=== PATIENT | female | born 1930 | race Caucasian/White ===

== ENCOUNTER → 2016-08-17 | Outpatient (REF) | payer MEDICARE ==
[~2016-08-17] MED LIST: /PANT40TA OR; ALLE180T33 PO; ALLEGRA PO; ASPI81TA83 OR; ASTELIN PO; ATEN25TA OR; ATEN25TA PO; AVASTIN; CALCCHW12 OR; CEFT500T OR; COLA100C PO; Diflucan; ELIQ5TAB PO; GLUC500T3 OR; GLUC500T53 PO; HYDR25TA6 OR; IBUP-1114 PO; LASI40TA OR; LIPI10TA OR; MEGA40SU PO; MELA1CAP2 PO; MULTIVIT PO; NORV5TAB OR; OCUVTA PO; OMEG12002 PO; OMEGA 3 PO; PERSERVISION PO; PRESCAP PO; PRESCAP4 PO; PROT1TAB2 PO; SENO8.6T10 PO; TYLE325T5 PO; VANIQA AD; VITA-193 PO; VITA500T3 PO; VITMTA PO; [UNRECOGNIZED DRUG - OTHER]
[2016-08-17 16:31] LABS: ALBUMIN 3.6 GM/DL (3.2-5.2); ALBUMIN/GLOBULIN RATIO 1.13 (1.00-1.93); BILIRUBIN,TOTAL 0.3 MG/DL (0.2-1.0); CALCIUM LEVEL 9.1 MG/DL (8.8-10.2); CREATININE FOR GFR 1.1 MG/DL (0.55-1.02); GLOMERULAR FILTRATION RATE 50.1 (>32); TOTAL PROTEIN 6.8 GM/DL (6.4-8.2)
== END ==
LOC: M SFHCPLAZ 14:14
PROVIDERS: ATTEND Internal Medicine
DX: I10 Essential (primary) hypertension (principal); E78.00 Pure hypercholesterolemia, unspecified; R94.6 Abnormal results of thyroid function studies

== ENCOUNTER → 2017-02-04 | Outpatient (REF) | payer MEDICARE ==
[~2017-02-04] MED LIST changes: -COLA100C PO; +COLA100C5 PO
[2017-02-04 13:05] LABS: MEAN CORPUSCULAR HEMOGLOBIN 30.1 pg (27.0-33.0); MEAN CORPUSCULAR HGB CONC 32.6 g/dl (32.0-36.5); MEAN CORPUSCULAR VOLUME 92.4 fl (80.0-96.0); RED CELL DISTRIBUTION WIDTH 13.6 % (11.5-14.5); WHITE BLOOD COUNT 7.2 K/mm3 (4.0-10.0)
[2017-02-04 13:21] LABS: ALBUMIN 3.8 GM/DL (3.2-5.2); ALBUMIN/GLOBULIN RATIO 1.12 (1.00-1.93); BILIRUBIN,TOTAL 0.6 MG/DL (0.2-1.0); CALCIUM LEVEL 9.5 MG/DL (8.8-10.2); CREATININE FOR GFR 1.2 MG/DL (0.55-1.02); GLOMERULAR FILTRATION RATE 45.2 (>32); POTASSIUM SERUM 4.2 MEQ/L (3.5-5.1); TOTAL PROTEIN 7.2 GM/DL (6.4-8.2)
== END ==
LOC: M SFHCPLAZ 10:34
PROVIDERS: ATTEND Internal Medicine
DX: D50.0 Iron deficiency anemia secondary to blood loss (chronic) (principal); I10 Essential (primary) hypertension

== ENCOUNTER → 2018-01-04 | Outpatient (REF) | payer MEDICARE ==
[2018-01-04 20:07] LABS: APPEARANCE, URINE CLEAR (CLEAR); BACTERIA, URINE AUTO NEGATIVE (NEGATIVE); BILIRUBIN, URINE AUTO NEGATIVE (NEGATIVE); BLOOD, URINE BLOOD NEGATIVE (NEGATIVE); COLOR, URINE STRAW (YELLOW); GLUCOSE, URINE (UA) AUTO NEGATIVE (NEGATIVE); KETONE, URINE AUTO NEGATIVE (NEGATIVE); LEUKOCYTE ESTERASE, URINE AUTO NEGATIVE (NEGATIVE); NITRITE, URINE AUTO NEGATIVE (NEGATIVE); PROTEIN, URINE AUTO NEGATIVE (NEGATIVE); RBC, URINE AUTO 0 /HPF (0-3); SPECIFIC GRAVITY URINE AUTO 1.004 (1.002-1.035); SQUAMOUS EPITHELIAL CELL UR AU 0 /HPF (0-6); UROBILINOGEN, URINE AUTO 0.2 mg/dL (0.0-2.0); WBC, URINE AUTO 0 /HPF (0-3)
== END ==
LOC: M SFHCPLAZ 07:08
DX: R44.3 Hallucinations, unspecified (principal); Z79.899 Other long term (current) drug therapy
CPT/HCPCS: 81001

== ENCOUNTER → 2018-01-05 | Outpatient (REF) | payer MEDICARE ==
[2018-01-05 12:22] LABS: HEMOGLOBIN 13.1 g/dl (12.0-15.5); MEAN CORPUSCULAR HEMOGLOBIN 29.8 pg (27.0-33.0); MEAN CORPUSCULAR VOLUME 93.2 fl (80.0-96.0); PLATELET COUNT, AUTOMATED 237 10^3/uL (150-450); RED CELL DISTRIBUTION WIDTH 12.8 % (11.5-14.5); WHITE BLOOD COUNT 5.8 10^3/uL (4.0-10.0)
[2018-01-05 13:29] LABS: VITAMIN B12 LEVEL > 2000 PG/ML
[2018-01-05 13:31] LABS: FOLATE > 24.0 NG/ML
[2018-01-05 14:38] LABS: ALBUMIN 3.6 GM/DL (3.2-5.2); ALBUMIN/GLOBULIN RATIO 1.06 (1.00-1.93); ALKALINE PHOSPHATASE 97 U/L (45-117); ALT/SGPT 20 U/L (12-78); ANION GAP 5 MEQ/L (8-16); AST/SGOT 13 U/L (7-37); BILIRUBIN,TOTAL 0.3 MG/DL (0.2-1.0); BLOOD UREA NITROGEN 23 MG/DL (7-18); CALCIUM LEVEL 9.5 MG/DL (8.8-10.2); CARBON DIOXIDE LEVEL 31 MEQ/L (21-32); CHLORIDE LEVEL 106 MEQ/L (98-107); CHOLESTEROL LEVEL 194 MG/DL (<200); CHOLESTEROL RISK RATIO 2.939 (<5); CREATININE FOR GFR 0.99 MG/DL (0.55-1.30); GLOMERULAR FILTRATION RATE 56.4 (>32); GLUCOSE, FASTING 78 MG/DL (70-100); HDL CHOLESTEROL 66 MG/DL (>40); LDL CHOLESTEROL 98.8 MG/DL (<100); MAGNESIUM LEVEL 2.2 MG/DL (1.8-2.4); NON-HDL-C 128 MG/DL; POTASSIUM SERUM 4.5 MEQ/L (3.5-5.1); SODIUM LEVEL 142 MEQ/L (136-145); TRIGLYCERIDES LEVEL 146 MG/DL (<150)
== END ==
LOC: M SFHCADAM 09:35
DX: D50.0 Iron deficiency anemia secondary to blood loss (chronic) (principal); I10 Essential (primary) hypertension; E78.00 Pure hypercholesterolemia, unspecified; R94.6 Abnormal results of thyroid function studies; F03.90 Unspecified dementia, unspecified severity, without behavioral disturbance, psychotic disturbance, mood disturbance, and anxiety
CPT/HCPCS: 82746

== ENCOUNTER 2018-07-12 08:02 | Inpatient (IN) | payer MEDICARE ==
[~2018-07-12] VITALS: Ht 160 cm; Wt 60.7 kg
[2018-07-12] MEDS ORDERED: RISP0.2516 PO ×2 (08:15→09:38)
[2018-07-12] MEDS ORDERED: RISP0.5T21 PO (08:15)
[2018-07-12] MEDS ORDERED: ZYRTTAB8 PO (08:15)
[2018-07-12 08:37] LABS: BASO # 0.1 10^3/uL (0.0-0.2); BASO % 0.6 % (0.0-1.0); EOS # 0.3 10^3/uL (0.0-0.50); EOS % 3.2 % (0.0-3.0); HEMATOCRIT 34.5 % (36.0-47.0); LYMPH # 1.4 10^3/uL (1.5-4.5); LYMPH % 17.3 % (24.0-44.0); MEAN CORPUSCULAR HEMOGLOBIN 28.4 pg (27.0-33.0); MEAN CORPUSCULAR HGB CONC 31.9 g/dl (32.0-36.5); MEAN CORPUSCULAR VOLUME 89.1 fl (80.0-96.0); MONO # 0.8 10^3/uL (0.0-0.8); MONO % 9.7 % (0.0-5.0); NEUTROPHILS # 5.7 10^3/uL (1.8-7.7); NEUTROPHILS % 68.6 % (36.0-66.0); PLATELET COUNT, AUTOMATED 281 10^3/uL (150-450); RED BLOOD COUNT 3.87 10^6/uL (4.00-5.40); WHITE BLOOD COUNT 8.3 10^3/uL (4.0-10.0)
--- NOTE | 2018-07-12 08:59 | REP ---
CT Head without contrast HISTORY: Altered mental status COMPARISON: 07/05/2015 An area of decreased attenuation is present in the right basal ganglia. This represents an old lacunar infarction. Areas of decreased attenuation are present in the periventricular and subcortical white matter. This represents small-vessel ischemic disease. There is no intraparenchymal hemorrhage, acute infarct, mass or midline shift. The ventricular system and cortical sulci as well as subarachnoid space in the posterior fossa are dilated consistent with moderate volume loss. There is no extra cerebral collection. There is no fracture. The visualized sinuses are clear. IMPRESSION: 1. Old right basal ganglia lacunar infarction. 2. Small vessel ischemic disease. 3. Moderate volume loss. Electronically Signed by Santiago Cain MD 07/12/2018 08:51 A
--- NOTE | 2018-07-12 09:04 | REP ---
CT cervical spine without contrast HISTORY: Fall COMPARISON: None There is no acute fracture. Disc bulges are present at the C2-3 and C3-4 levels. Disc bulges with associated osteophyte formation present at the C4-5 through C7-T1 levels. There is minimal narrowing of the spinal canal. Uncinate process and/or facet hypertrophy are present at the C2-3 through C7-T1 levels. These findings produce minimal to severe narrowing of the neural foramina. The C3-4 through C7-T1 intervertebral discs are decreased in height consistent with disc degeneration. There are 3 mm of anterior subluxation of C3-4. IMPRESSION: 1. There is no acute fracture. 2. There is cervical spondylosis at the C2-3 through C7-T1 levels. Electronically Signed by Santiago Cain MD 07/12/2018 08:55 A
[2018-07-12 09:15] LABS: ALT/SGPT 17 U/L (12-78); BILIRUBIN,DIRECT < 0.1 MG/DL (0.0-0.2); BILIRUBIN,TOTAL 0.2 MG/DL (0.2-1.0); BLOOD UREA NITROGEN 31 MG/DL (7-18); CALCIUM LEVEL 8.8 MG/DL (8.8-10.2); CARBON DIOXIDE LEVEL 25 MEQ/L (21-32); CHLORIDE LEVEL 106 MEQ/L (98-107); CPK CREATINE PHOSPHOKINASE 119 U/L (26-192); CREATININE FOR GFR 1.15 MG/DL (0.55-1.30); GLOMERULAR FILTRATION RATE 47.4 (>32); GLUCOSE, FASTING 99 MG/DL (70-100); MB/CK RELATIVE INDEX 2.35 (< OR =4); POTASSIUM SERUM 4.7 MEQ/L (3.5-5.1); SODIUM LEVEL 138 MEQ/L (136-145); TOTAL PROTEIN 6.4 GM/DL (6.4-8.2); TROPONIN I < 0.02 NG/ML (< 0.10)
--- NOTE | 2018-07-12 09:26 | REP ---
Pelvis: Single view. History: Injury in a fall. Findings: The bony pelvic ring is intact. There is diffuse osteopenia. No pelvic or sacral fracture is seen. Degenerative disc and facet changes are noted in the lower lumbar spine and there is evidence of a levoconvex scoliosis. No hip fracture is seen. Vascular calcifications noted. Bowel gas pattern is unremarkable. Impression: No traumatic abnormality seen. Electronically Signed by Yobany Hurst MD 07/12/2018 09:17 A
--- NOTE | 2018-07-12 09:29 | REP ---
Portable chest x-ray: Single view. History: Altered mental status. Comparison study: August 17, 2015. Findings: EKG monitoring electrodes overlie the chest. Surgical sutures are noted in the left upper quadrant of the abdomen. There is linear pleuroparenchymal fibrosis in the left base. No infiltrate is seen. Heart size is borderline. The thoracic aorta is tortuous. Impression: Linear pleuroparenchymal fibrosis left base. Otherwise no acute disease. Electronically Signed by Yobany Hurst MD 07/12/2018 10:45 A
[2018-07-12] MEDS ORDERED: NS 1,000 ML IV ONE (09:30)
[2018-07-12] MEDS ORDERED: ALL10TAB28 PO (09:38)
[2018-07-12] MEDS ORDERED: MELA1TAB15 PO (09:38)
[2018-07-12] MEDS ORDERED: ATEN50TA2 PO (09:39)
[2018-07-12] MEDS ORDERED: NORCO, ANEXSIA 5/325MG TABLET (HYDROcodone/ACETAMINOPHEN) PO PRN (10:45)
[2018-07-12] MEDS ORDERED: risperiDONE 0.25 MG TAB PO SCH (12:00)
[2018-07-12] MEDS: SENOKOT S TAB PO SCH ×3 (13:00→22:06)
[2018-07-12 14:33] LABS: TOTAL 25(OH) VITAMIN D 30.3 NG/ML (30.0-100.0)
[2018-07-12 15:08] LABS: VITAMIN B12 LEVEL 939 PG/ML (247-911)
--- NOTE | 2018-07-12 15:29 | HPEPDOC ---
General Date of Admission Jul 12, 2018 at 10:45 Chief Complaint The patient is a 87-year-old female Who was brought into the emergency room by her daughter because of worsening confusion. History of Present Illness Patient is an 87-year-old female with a PMHx of Dementia with Hallucinations, HTN, CAD without stent (Hx of [place]), Asthma / Bronchitis, Chronic allergies, RLS, Bilateral macular degeneration, GERD, who presented to the ER, brought in by her daughter because of worsening confusion. Patient is a poor historian and details are provided by the daughters. Noted that over the course of 3 weeks. Patient has been having worsening mentation. Yesterday patient had had a fall or she was too weak to move. . They noted that she fell backward landing on her back. . He denied any loss of consciousness, but they did report head trauma. As per the daughters patient has not experienced any cough, fevers, chills, nausea or vomiting. They do note that the patient is incontinent of urine and stool. They may have noted some abnormal odor of urine. Patient has noted some constipation, however has a bowel movement yesterday. Present noted that the patient has been experiencing dementia with hallucina tions over the last 3 years. They note that they have been on Risperdal for these hallucinations. There has been improvement initially, however, there was worsening hallucinations and dose of Risperdal has been increased one week ago by her primary care provider. Family notes that the patient has had a good appetite and dont note any significant change in her weight. Home Medications Scheduled Apixaban Base (Eliquis) 5 Mg Tab, 5 MG PO BID, (Reported) Atenolol (Atenolol) 50 Mg Tab, 25 MG PO QHS, (Reported) Cetirizine HCl (All Day Allergy) 10 Mg Tab, 10 MG PO DAILY, (Reported) Docusate Sod/Senna (Senokot S 8.6-50 mg) 1 Tab Tab, 1 TAB PO QID, (Reported) Melatonin (Melatonin) 10 Mg Tab, 10 MG PO QHS, (Reported) Multivitamin Areds (Preservision Areds) 1 Cap Cap, 1 CAP PO BID, (Reported) Pantoprazole Sodium Sesquihydr (Protonix) 40 Mg Tab, 40 MG PO DAILY, (Reported) Risperidone (Risperdal) 0.5 Mg Tab, 0.5 MG PO BID, (Reported) Risperidone (Risperdal) 0.25 Mg Tab, 0.25 MG PO DAILY, (Reported) TAKES @ NOON Allergies Coded Allergies: Morphine (Verified Allergy, Intermediate, RASH, 09/26/12) Penicillins (Verified Allergy, Intermediate, RASH, 09/26/12) Penicillins Cross Reactors (Verified Allergy, Intermediate, RASH, 09/26/12) Sulfa Drugs (Verified Allergy, Intermediate, RASH, 09/26/12) Sulfa Drugs Cross Reactors (Verified Allergy, Intermediate, RASH, 09/26/12) Aloe (Unverified Allergy, Mild, Rash, 07/06/15) Cephalosporins (Verified Allergy, Unknown, 07/05/15) Reaction: Rash Enalapril (Verified Allergy, Unknown, 09/26/12) Trandolapril (Verified Allergy, Unknown, 09/26/12) Codeine (Verified Adverse Reaction, Mild, ANXIETY, 09/26/12) Diphenhydramine (Verified Adverse Reaction, Unknown, agitation, 07/12/18) Past Medical History Medical History Dementia with Hallucinations, HTN, CAD without stent (Hx of [place]), Asthma / Bronchitis, Chronic allergies, RLS, Bilateral macular degeneration, GERD Surgical History Right breast biopsy Lumbar spine surgery Bilateral cataract excision Reparative Enterocele Abdominal hysterectomy Bilateral salpingo-oophorectomy for cervical cancer Vitrectomy surgery of the right eye Ovarian cystectomy with appendectomy Bladder suspension Tonsillectomy Colonoscopy done approximately 7 years Family History - Noncontributory given advanced age Social History - Denies the use of alcohol, tobacco or illicit drugs - Denies recent travel or sick contacts - Lives with daughter - Occupation; 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[place] [employer] Other systems Unable to be obtained, as patient is a poor historian Vital Signs - Vitals: BP 122/90, HR 74, RR 16, Sat 95%RA, Temp 97.4F - General: Lying in bed, No acute distress, Speaking in full sentences, AAOx2 (not oriented to time) - HEENT: NC, AT, right pupil is 2-3 mm, left pupil is 1-2 mm, both are reactive to light - CVS: RRR, +S1S2, - Murmurs / rubs / gallops - Lungs: Fair air entry bilaterally, Clear to auscultation, No wheezing / rales / rhonchi - Abdomen: Soft, Non-distended, Non-tender - Extremities: No lower extremity edema, No calf tenderness - Neuro: No focal motor or sensory deficit - Skin: No visible rashes Laboratory Data Labs 24H Laboratory Tests 2 07/12/18 08:24: Immature Granulocyte % (Auto) 0.6, White Blood Count 8.3, Red Blood Count 3.87L, Hemoglobin 11.0L, Hematocrit 34.5L, Mean Corpuscular Volume 89.1, Mean Corpuscular Hemoglobin 28.4, Mean Corpuscular Hemoglobin Concent 31.9L, Red Cell Distribution Width 14.0, Platelet Count 281, Neutrophils (%) (Auto) 68.6H, Lymphocytes (%) (Auto) 17.3L, Monocytes (%) (Auto) 9.7H, Eosinophils (%) (Auto) 3.2H, Basophils (%) (Auto) 0.6, Neutrophils # (Auto) 5.7, Lymphocytes # (Auto) 1.4L, Monocytes # (Auto) 0.8, Eosinophils # (Auto) 0.3, Basophils # (Auto) 0.1, Nucleated Red Blood Cells % (auto) 0.0, Anion Gap 7L, Glomerular Filtration Rate 47.4, Lactic Acid Level 0.9, Calcium Level 8.8, Aspartate Amino Transf (AST/SGOT) 14, Alanine Aminotransferase (ALT/SGPT) 17, Alkaline Phosphatase 93, Total Bilirubin 0.2, Direct Bilirubin < 0.1, Ammonia < 10, Total Creatine Kinase 119, Creatine Kinase MB 3.0, Creatine Kinase MB Relative Index 2.35, Troponin I < 0.02, Total Protein 6.4, Albumin 3.0L, Albumin/Globulin Ratio 0.88L, Vitamin B12 Level 939H, 25-Hydroxy Vitamin D Total 30.3, Thyroid Stimulating Hormone (TSH) 2.200 07/12/18 09:06: Urine Color YELLOW, Urine Appearance HAZY, Urine pH 7.0, Urine Specific [place] 1.016, Urine Protein NEGATIVE, Urine Glucose (UA) NEGATIVE, Urine Ketones NEGATIVE, Urine Blood NEGATIVE, Urine Nitrite NEGATIVE, Urine Bilirubin NEGATIVE, Urine Urobilinogen 0.2, Urine Leukocyte Esterase NEGATIVE, Urine WBC (Auto) 2, Urine RBC (Auto) 3, Urine Hyaline Casts (Auto) 0, Urine Bacteria (Auto) NEGATIVE, Urine Squamous Epithelial Cells 0, Urine Amorphous Sediment SMALLH, Urine Sperm (Auto) 07/12/18 09:10: Bedside Glucose (Misc Panel) 119H CBC/BMP Laboratory Tests 07/12/18 08:24 Red Blood Count 3.87 L, Mean Corpuscular Volume 89.1, Mean Corpuscular Hemoglobin 28.4, Mean Corpuscular Hemoglobin Concent 31.9 L, Red Cell Distribution Width 14.0, Neutrophils (%) (Auto) 68.6 H, Lymphocytes (%) (Auto) 17.3 L, Monocytes (%) (Auto) 9.7 H, Eosinophils (%) (Auto) 3.2 H, Basophils (%) (Auto) 0.6, Neutrophils # (Auto) 5.7, Lymphocytes # (Auto) 1.4 L, Monocytes # (Auto) 0.8, Eosinophils # (Auto) 0.3, Basophils # (Auto) 0.1 Microbiology Microbiology 07/12/18 Blood Culture, Received Pending 07/12/18 Blood Culture, Received Pending Plan / VTE VTE Prophylaxis Ordered?: Yes Plan Plan Confusion - possibly 2/2 infection - possibly 2/2 UTI, possibly 2/2 medications, possibly 2/2 worsening of dementia - Was admitted to the hospital service for progressive decline in mentation over last 3 weeks - Family has noted the patient does experience sun-downing syndrome - She is oriented to person, place but not to time; as per family, this is her baseline - Will perform workup for infectious etiology - CT head 07/12: Old right basal ganglia lacunar infarction. Small vessel isch emic disease. Moderate volume loss. - CXR 07/12: Linear pleuroparenchymal fibrosis left base. Otherwise no acute disease. - Will hold off on antibiotics - Will review medications - Will check B12, Folate, Vitamin D and RPR screen - c/w Risperdal for hallucinations - Will get PFS on board for likely placement Fall on 07/11 as outpatient - There is no reported loss of consciousness, but there was some head trauma - Patient is not complaining of any neck pain - CT head noted above - CT cervical spine 07/12: There is no acute fracture. There is cervical spondylosis at the C2-3 through C7-T1 levels. - Pelvis XR 1/15: No traumatic abnormality seen. 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
[2018-07-12] MEDS: PANTOPRAZOLE 40MG TAB (PROTONIX) PO SCH (16:40)
[2018-07-12] MEDS: OCUVITE 1 TAB PO SCH ×2 (16:40→22:06)
[2018-07-12] MEDS: ACETAMINOPHEN TAB 650MG DOSE (2X325MG) PO PRN (17:37)
[2018-07-12] MEDS: risperiDONE 0.5 MG TAB PO SCH (17:37)
[2018-07-12] MEDS: VITAMIN D 1,000 INTERNATIONAL UNITS TABLET PO SCH (17:37)
--- NOTE | 2018-07-12 19:56 | ECGEPIP ---
Stationary ECG Study [facility] - ED Test Date: 2018-07-12 Pat Name: KRYSTA LEDESMA Department: Room: [place] [address] Gender: F Management Analyst: wayne : [id number] Requested By: Tommy Mcintosh Order Number: [id number] Reading MD: Tommy Mcintosh Measurements Intervals [place] Rate: 71 P: 73 RI: 253 QRS: -38 QRSD: 132 T: 75 QT: 428 QTc: 468 Interpretive Statements SINUS RHYTHM WITH FIRST DEGREE AV BLOCK MARKED LEFT AXIS DEVIATION LEFT BUNDLE BRANCH BLOCK CW 08/17/15 RATE DECREASED Electronically Signed On 07-12-2018 19:56:16 EST by Tommy Mcintosh
[2018-07-12 22:00] VITALS: BP 120/58
[2018-07-12] MEDS: ATENOLOL 25 MG TAB PO SCH (22:06)
[2018-07-12] MEDS: APIXABAN 5 MG TAB (ELIQUIS) PO SCH (22:07)
[2018-07-13] MEDS: risperiDONE 0.5 MG TAB PO SCH (05:20)
[2018-07-13 06:00] VITALS: BP 128/60
[2018-07-13 06:14] LABS: BASO % 0.1 % (0.0-1.0); EOS # 0.2 10^3/uL (0.0-0.50); EOS % 3.4 % (0.0-3.0); HEMATOCRIT 30.1 % (36.0-47.0); HEMOGLOBIN 9.7 g/dl (12.0-15.5); LYMPH # 1.1 10^3/uL (1.5-4.5); LYMPH % 15.1 % (24.0-44.0); MEAN CORPUSCULAR HEMOGLOBIN 28.4 pg (27.0-33.0); MEAN CORPUSCULAR HGB CONC 32.2 g/dl (32.0-36.5); MEAN CORPUSCULAR VOLUME 88.3 fl (80.0-96.0); MONO # 0.7 10^3/uL (0.0-0.8); MONO % 9.2 % (0.0-5.0); NEUTROPHILS # 5.1 10^3/uL (1.8-7.7); NEUTROPHILS % 71.9 % (36.0-66.0); PLATELET COUNT, AUTOMATED 256 10^3/uL (150-450); RED BLOOD COUNT 3.41 10^6/uL (4.00-5.40)
[2018-07-13 06:44] LABS: ALBUMIN 2.4 GM/DL (3.2-5.2); BILIRUBIN,TOTAL 0.3 MG/DL (0.2-1.0); CALCIUM LEVEL 8.3 MG/DL (8.8-10.2); GLOMERULAR FILTRATION RATE 55.7 (>32); POTASSIUM SERUM 3.8 MEQ/L (3.5-5.1)
[2018-07-13] MEDS: VITAMIN D 1,000 INTERNATIONAL UNITS TABLET PO SCH ×2 (08:42→09:00)
[2018-07-13] MEDS: OCUVITE 1 TAB PO SCH ×3 (08:42→21:01)
[2018-07-13] MEDS: SENOKOT S TAB PO SCH ×5 (08:42→21:01)
[2018-07-13] MEDS: PANTOPRAZOLE 40MG TAB (PROTONIX) PO SCH ×2 (08:42→09:00)
[2018-07-13] MEDS: APIXABAN 5 MG TAB (ELIQUIS) PO SCH ×3 (08:42→21:01)
[2018-07-13 09:23] LABS: C REACTIVE PROTEIN QUANTITATIV 4.05 MG/DL (0.00-0.30)
[2018-07-13 09:55] LABS: ERYTHROCYTE SEDIMENTATION RATE 70 mm/hr (0-42)
--- NOTE | 2018-07-13 10:05 | REP ---
LEFT HAND FOUR VIEWS: HISTORY: 1st metacarpophalangeal joint pain. COMPARISON: 06/17/2006 There is no acute fracture or dislocation. There is narrowing of the lateral carpal joint spaces. This is marked narrowing of greater multangular 1st metacarpal joint space. There is irregularity and sclerosis of the greater multangular and base of the first metacarpal with associated osteophyte formation. There is narrowing of the metacarpophalangeal , intermediate and distal interphalangeal joint spaces. The bony structure is osteopenic. IMPRESSION: Degenerative change as described above. Electronically Signed by Santiago Cain MD 07/13/2018 10:08 A
--- NOTE | 2018-07-13 11:59 | IPNPDOC ---
Text Note Date of Service The patient was seen on 07/13/18. NOTE Subjective: Patient is an 87-year-old female with a PMHx of Dementia with Hallucinations, HTN, CAD without stent (Hx of [place]), Asthma / Bronchitis, Chronic allergies, RLS, Bilateral macular degeneration, GERD, who presented to the ER, brought in by her daughter because of worsening confusion. Patient was admitted to the hospital service for further evaluation and treatment. Patient was seen and examined at the bedside. Currently patient denies any pain or any problems overnight. She does appear very sleepy. Objective: Vitals (See below) General: Lying in bed, no acute distress, comfortable, AAOx2 HEENT: NC, AT CVS: RRR, +S1S2 Lungs: Fair air entry b/l, -w/r/r Abdomen: Soft, ND, NT Extremities: - Edema, - Calf tenderness Assessment and plan: Confusion - possibly 2/2 worsening of dementia; possibly 2/2 medications, less likely 2/2 infection - Presented initially with worsening mentation for 3 weeks - Family has noted the patient does experience sun-downing syndrome - She is oriented to person, place but not to time; as per family, this is her baseline - Infectious workup negative - CT head 07/12: Old right basal ganglia lacunar infarction. Small vessel ischemic disease. Moderate volume loss. - CXR 07/12: Linear pleuroparenchymal fibrosis left base. Otherwise no acute disease. - Will reduce dose of Risperdal - RPR negative, B12 noted; Vitamin D level low - c/w adjust dose of Risperdal for hallucinations - Started Vitamin D supplementation - PFS on board for likely placement Fall on 07/11 as outpatient - There is no reported loss of consciousness, but there was some head trauma - Patient is not complaining of any neck pain - CT head noted above - CT cervical spine 07/12: There is no acute fracture. There is cervical spondylosis at the C2-3 through C7-T1 levels. - Pelvis XR 07/12: No traumatic abnormality seen. 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) - c/w Eliquis Asthma / Bronchitis - c/w Duoneb PRN Chronic allergies - Will hold Cetirizine RLS - Currently not on medications Bilateral macular degeneration GERD - c/w Protonix DVT prophylaxis - c/w Full anticoagulation with Eliquis VS,Fishbone, I+O VS, Fishbone, I+O Laboratory Tests 07/13/18 05:28 Red Blood Count 3.41 L, Mean Corpuscular Volume 88.3, Mean Corpuscular Hemoglobin 28.4, Mean Corpuscular Hemoglobin Concent 32.2, Red Cell Distribution Width 14.2, Neutrophils (%) (Auto) 71.9 H, Lymphocytes (%) (Auto) 15.1 L, Monocytes (%) (Auto) 9.2 H, Eosinophils (%) (Auto) 3.4 H, Basophils (%) (Auto) 0.1, Neutrophils # (Auto) 5.1, Lymphocytes # (Auto) 1.1 L, Monocytes # (Auto) 0.7, Eosinophils # (Auto) 0.2, Basophils # (Auto) 0.0, Calcium Level 8.3 L, Aspartate Amino Transf (AST/SGOT) 13, Alanine Aminotransferase (ALT/SGPT) 15, Alkaline Phosphatase 70, Total Bilirubin 0.3, Uric Acid 5.0, Total Protein 6.0 L, Albumin 2.4 L Vital Signs Date Time Temp Pulse Resp B/P (MAP) Pulse Ox O2 Delivery O2 Flow Rate FiO2 07/13/18 06:00 98.4 65 17 128/60 (82) 94 Room Air I&O- Last 24 Hours up to 6 AM 07/13/18 06:00 Intake Total 600 ml Output Total 0 ml Balance 600 ml CLEMENCIA FRANCIS MD Jul 13, 2018 11:59
[2018-07-13 14:00] VITALS: BP 150/75
[2018-07-13] MEDS: ACETAMINOPHEN TAB 650MG DOSE (2X325MG) PO PRN ×2 (14:44→21:04)
[2018-07-13] MEDS: risperiDONE 0.25 MG TAB PO SCH (17:16)
[2018-07-13] MEDS: ATENOLOL 25 MG TAB PO SCH (21:01)
[2018-07-13 22:00] VITALS: BP 158/72
[2018-07-14 06:00] VITALS: BP 136/58
[2018-07-14] MEDS: risperiDONE 0.25 MG TAB PO SCH ×2 (06:14→17:33)
[2018-07-14 06:24] LABS: BASO % 0.3 % (0.0-1.0); EOS # 0.2 10^3/uL (0.0-0.50); EOS % 2.7 % (0.0-3.0); HEMATOCRIT 30.9 % (36.0-47.0); LYMPH # 1.2 10^3/uL (1.5-4.5); LYMPH % 15.3 % (24.0-44.0); MEAN CORPUSCULAR HGB CONC 32.4 g/dl (32.0-36.5); MEAN CORPUSCULAR VOLUME 86.6 fl (80.0-96.0); MONO # 0.7 10^3/uL (0.0-0.8); MONO % 8.9 % (0.0-5.0); NEUTROPHILS # 5.6 10^3/uL (1.8-7.7); NEUTROPHILS % 72.4 % (36.0-66.0); PLATELET COUNT, AUTOMATED 276 10^3/uL (150-450); RED BLOOD COUNT 3.57 10^6/uL (4.00-5.40); WHITE BLOOD COUNT 7.7 10^3/uL (4.0-10.0)
[2018-07-14 06:50] LABS: ALBUMIN 2.5 GM/DL (3.2-5.2); BILIRUBIN,TOTAL 0.3 MG/DL (0.2-1.0); C REACTIVE PROTEIN QUANTITATIV 5.18 MG/DL (0.00-0.30); CALCIUM LEVEL 8.7 MG/DL (8.8-10.2); CREATININE FOR GFR 0.97 MG/DL (0.55-1.30); GLOMERULAR FILTRATION RATE 57.7 (>32); POTASSIUM SERUM 3.7 MEQ/L (3.5-5.1); TOTAL PROTEIN 6.2 GM/DL (6.4-8.2)
[2018-07-14] MEDS: SENOKOT S TAB PO SCH ×4 (07:53→20:58)
[2018-07-14] MEDS: VITAMIN D 1,000 INTERNATIONAL UNITS TABLET PO SCH (07:53)
[2018-07-14] MEDS: OCUVITE 1 TAB PO SCH ×2 (07:53→20:58)
[2018-07-14] MEDS: PANTOPRAZOLE 40MG TAB (PROTONIX) PO SCH (07:53)
[2018-07-14] MEDS: APIXABAN 5 MG TAB (ELIQUIS) PO SCH ×2 (07:53→20:58)
[2018-07-14] MEDS: ACETAMINOPHEN TAB 650MG DOSE (2X325MG) PO PRN ×2 (07:53→17:33)
[2018-07-14 12:00] VITALS: BP 150/78
--- NOTE | 2018-07-14 12:42 | IPNPDOC ---
Text Note Date of Service The patient was seen on 07/14/18. NOTE Subjective: Patient is an 87-year-old female with a PMHx of Dementia with Hallucinations, HTN, CAD without stent (Hx of [place]), Asthma / Bronchitis, Chronic allergies, RLS, Bilateral macular degeneration, GERD, who presented to the ER, brought in by her daughter because of worsening confusion. Patient was admitted to the hospital service for further evaluation and treatment. Patient was seen and examined at the bedside. Patient was awake and alert this morning sitting up in bed. Did not appear to be in any acute distress. Did not have any questions or concerns. Patient's daughter was present at the bedside; I have addressed all of her questions. Objective: Vitals (See below) General: Lying in bed, no acute distress, comfortable, AAOx2 HEENT: NC, AT CVS: RRR, +S1S2 Lungs: Fair air entry b/l, no appreciable wheezing, rales or rhonchi Abdomen: Soft, abdomen is nondistended, without any evidence of tenderness Extremities: Does not appear to have any lower extremity edema, - Calf tenderness Assessment and plan: Confusion - possibly 2/2 worsening of dementia; possibly 2/2 medications, less likely 2/2 infection - Presented initially with worsening mentation for 3 weeks - Family has noted the patient does experience sun-downing syndrome - Patient is oriented to person, place - Infectious workup negative - CT head 07/12: Old right basal ganglia lacunar infarction. Small vessel ischemic disease. Moderate volume loss. - CXR 07/12: Linear pleuroparenchymal fibrosis left base. Otherwise no acute disease. - RPR negative, B12 noted; Vitamin D level low - c/w adjusted dose of Risperdal - c/w Vitamin D supplementation - PFS on board for likely placement; patient's family is unable to take care of her as an outpatient Fall on 07/11 as outpatient - There is no reported loss of consciousness, but there was some head trauma - Patient is not complaining of any neck pain - CT head noted above - CT cervical spine 07/12: There is no acute fracture. There is cervical spondylosis at the C2-3 through C7-T1 levels. - Pelvis XR 07/12: No traumatic abnormality seen. 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) - c/w Eliquis Asthma / Bronchitis - c/w Duoneb PRN Chronic allergies - Will hold Cetirizine RLS - Currently not on medications Bilateral macular degeneration GERD - c/w Protonix DVT prophylaxis - c/w Full anticoagulation with Eliquis Disposition: - Discussed with case management and PFS; looking into long-term placement options VS,Fishbone, I+O VS, Fishbone, I+O Laboratory Tests 07/14/18 05:17 Red Blood Count 3.57 L, Mean Corpuscular Volume 86.6, Mean Corpuscular Hemoglobin 28.0, Mean Corpuscular Hemoglobin Concent 32.4, Red Cell Distribution Width 13.8, Neutrophils (%) (Auto) 72.4 H, Lymphocytes (%) (Auto) 15.3 L, Monocytes (%) (Auto) 8.9 H, Eosinophils (%) (Auto) 2.7, Basophils (%) (Auto) 0.3, Neutrophils # (Auto) 5.6, Lymphocytes # (Auto) 1.2 L, Monocytes # (Auto) 0.7, Eosinophils # (Auto) 0.2, Basophils # (Auto) 0.0, Calcium Level 8.7 L, Aspartate Amino Transf (AST/SGOT) 13, Alanine Aminotransferase (ALT/SGPT) 20, Alkaline Phosphatase 78, Total Bilirubin 0.3, Total Protein 6.2 L, Albumin 2.5 L Vital Signs Date Time Temp Pulse Resp B/P (MAP) Pulse Ox O2 Delivery O2 Flow Rate FiO2 07/14/18 06:00 98.8 66 16 136/58 (84) 92 Room Air I&O- Last 24 Hours up to 6 AM 07/14/18 06:00 Intake Total 720 ml Output Total 0 ml Balance 720 ml CLEMENCIA FRANCIS MD Jul 14, 2018 12:42
[2018-07-14] MEDS: ATENOLOL 25 MG TAB PO SCH (21:02)
[2018-07-14 22:00] VITALS: BP 140/79
[2018-07-15 06:00] VITALS: BP 130/76
[2018-07-15] MEDS: risperiDONE 0.25 MG TAB PO SCH ×2 (06:57→16:46)
[2018-07-15] MEDS: ACETAMINOPHEN TAB 650MG DOSE (2X325MG) PO PRN (06:57)
[2018-07-15 07:02] LABS: BASO % 0.2 % (0.0-1.0); EOS # 0.2 10^3/uL (0.0-0.50); EOS % 2.9 % (0.0-3.0); HEMATOCRIT 32.1 % (36.0-47.0); HEMOGLOBIN 10.5 g/dl (12.0-15.5); LYMPH # 1.2 10^3/uL (1.5-4.5); LYMPH % 14.8 % (24.0-44.0); MEAN CORPUSCULAR HEMOGLOBIN 28.2 pg (27.0-33.0); MEAN CORPUSCULAR HGB CONC 32.7 g/dl (32.0-36.5); MEAN CORPUSCULAR VOLUME 86.1 fl (80.0-96.0); MONO # 0.7 10^3/uL (0.0-0.8); MONO % 8.9 % (0.0-5.0); PLATELET COUNT, AUTOMATED 297 10^3/uL (150-450); RED BLOOD COUNT 3.73 10^6/uL (4.00-5.40); WHITE BLOOD COUNT 8.2 10^3/uL (4.0-10.0)
[2018-07-15 07:15] LABS: ALBUMIN 2.5 GM/DL (3.2-5.2); ALT/SGPT 23 U/L (12-78); BILIRUBIN,TOTAL 0.3 MG/DL (0.2-1.0); BLOOD UREA NITROGEN 17 MG/DL (7-18); C REACTIVE PROTEIN QUANTITATIV 5.95 MG/DL (0.00-0.30); CALCIUM LEVEL 8.6 MG/DL (8.8-10.2); CARBON DIOXIDE LEVEL 24 MEQ/L (21-32); CHLORIDE LEVEL 105 MEQ/L (98-107); CREATININE FOR GFR 0.92 MG/DL (0.55-1.30); GLOMERULAR FILTRATION RATE > 60.0 (>32); GLUCOSE, FASTING 88 MG/DL (70-100); POTASSIUM SERUM 3.8 MEQ/L (3.5-5.1); SODIUM LEVEL 138 MEQ/L (136-145); TOTAL PROTEIN 6.6 GM/DL (6.4-8.2)
[2018-07-15] MEDS: SENOKOT S TAB PO SCH (07:51)
[2018-07-15] MEDS: VITAMIN D 1,000 INTERNATIONAL UNITS TABLET PO SCH (12:07)
[2018-07-15] MEDS: OCUVITE 1 TAB PO SCH ×2 (12:07→20:41)
[2018-07-15] MEDS: APIXABAN 5 MG TAB (ELIQUIS) PO SCH ×2 (12:07→20:41)
[2018-07-15] MEDS: PANTOPRAZOLE 40MG TAB (PROTONIX) PO SCH (12:08)
--- NOTE | 2018-07-15 12:17 | IPNPDOC ---
Text Note Date of Service The patient was seen on 07/15/18. NOTE Subjective: Patient is an 87-year-old female with a PMHx of Dementia with Hallucinations, HTN, CAD without stent (Hx of [place]), Asthma / Bronchitis, Chronic allergies, RLS, Bilateral macular degeneration, GERD, who presented to the ER, brought in by her daughter because of worsening confusion. Patient was admitted to the hospital service for further evaluation and treatment. Patient was seen and examined at the bedside. Patient was sleepy on evaluation. She had no concerns. Family was present at bedside; I have addressed their questions Objective: Vitals (See below) General: Lying in bed, no acute distress, comfortable, AAOx2 HEENT: NC, AT CVS: RRR, +S1S2 Lungs: Fair air entry b/l, again upon auscultation. He did not appear to be any wheezing, rales or rhonchi Abdomen: Soft, abdomen is nondistended, without any evidence of tenderness Extremities: LE without any evidence of edema, - Calf tenderness Assessment and plan: Confusion - likely 2/2 worsening of dementia; less likely 2/2 medications, less likely 2/2 infection - Presented initially with worsening mentation for 3 weeks - Family has noted the patient does experience sun-downing syndrome - Infectious workup negative - CT head 07/12: Old right basal ganglia lacunar infarction. Small vessel ischemic disease. Moderate volume loss. - CXR 07/12: Linear pleuroparenchymal fibrosis left base. Otherwise no acute disease. - RPR negative, B12 noted; Vitamin D level low - c/w adjusted dose of Risperdal - c/w Vitamin D supplementation - PFS on board for likely placement; patient's family is unable to take care of her as an outpatient Fall on 07/11 as outpatient - There is no reported loss of consciousness, but there was some head trauma - Patient is not complaining of any neck pain - CT head noted above - CT cervical spine 07/12: There is no acute fracture. There is cervical spondylosis at the C2-3 through C7-T1 levels. - Pelvis XR 07/12: No traumatic abnormality seen. 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) - c/w Eliquis Asthma / Bronchitis - c/w Duoneb PRN Chronic allergies - Will hold Cetirizine RLS - Currently not on medications Bilateral macular degeneration GERD - c/w Protonix DVT prophylaxis - c/w Full anticoagulation with Eliquis Disposition: - Discussed with case management and PFS; looking into long-term placement options VS,Fishbone, I+O VS, Fishbone, I+O Laboratory Tests 07/15/18 05:55 Red Blood Count 3.73 L, Mean Corpuscular Volume 86.1, Mean Corpuscular Hemoglobin 28.2, Mean Corpuscular Hemoglobin Concent 32.7, Red Cell Distribution Width 13.7, Neutrophils (%) (Auto) 73.0 H, Lymphocytes (%) (Auto) 14.8 L, Monocytes (%) (Auto) 8.9 H, Eosinophils (%) (Auto) 2.9, Basophils (%) (Auto) 0.2, Neutrophils # (Auto) 6.0, Lymphocytes # (Auto) 1.2 L, Monocytes # (Auto) 0.7, Eosinophils # (Auto) 0.2, Basophils # (Auto) 0.0, Calcium Level 8.6 L, Asp artate Amino Transf (AST/SGOT) 16, Alanine Aminotransferase (ALT/SGPT) 23, Alkaline Phosphatase 81, Total Bilirubin 0.3, Total Protein 6.6, Albumin 2.5 L Vital Signs Date Time Temp Pulse Resp B/P (MAP) Pulse Ox O2 Delivery O2 Flow Rate FiO2 07/15/18 06:00 98.5 62 15 130/76 (94) 92 Room Air I&O- Last 24 Hours up to 6 AM 07/15/18 06:00 Intake Total 510 ml Output Total 0 ml Balance 510 ml CLEMENCIA FRANCIS MD Jul 15, 2018 12:17
--- NOTE | 2018-07-15 12:53 | REP ---
CT Head without contrast HISTORY: Right facial droop COMPARISON: 07/12/2018 An area of decreased attenuation is present in the right basal ganglia. This represents an old lacunar infarction. Areas of decreased attenuation are present in the periventricular and subcortical white matter. This represents small-vessel ischemic disease. There is no intraparenchymal hemorrhage, acute infarct, mass or midline shift. The ventricular system and cortical sulci as well as subarachnoid space in the posterior fossa are dilated consistent with moderate volume loss. There is no extra cerebral collection. There is no fracture. The visualized sinuses are clear. IMPRESSION: 1. Old right basal ganglia lacunar infarction. 2. Small vessel ischemic disease. 3. Moderate volume loss. Electronically Signed by Santiago Cain MD 07/15/2018 12:45 P
[2018-07-15] MEDS ORDERED: COLCHICINE 0.6 MG TAB PO ONE ×2 (13:00→14:00)
[2018-07-15 14:00] VITALS: BP 162/74
[2018-07-15 15:13] LABS: FOLATE 14.9 NG/ML (>5.4)
[2018-07-15] MEDS: ATENOLOL 25 MG TAB PO SCH (20:42)
[2018-07-16 05:47] LABS: BASO % 0.2 % (0.0-1.0); EOS # 0.3 10^3/uL (0.0-0.50); HEMATOCRIT 31.7 % (36.0-47.0); HEMOGLOBIN 10.4 g/dl (12.0-15.5); LYMPH # 1.5 10^3/uL (1.5-4.5); LYMPH % 17.5 % (24.0-44.0); MEAN CORPUSCULAR HEMOGLOBIN 28.3 pg (27.0-33.0); MEAN CORPUSCULAR HGB CONC 32.8 g/dl (32.0-36.5); MEAN CORPUSCULAR VOLUME 86.4 fl (80.0-96.0); MONO # 0.8 10^3/uL (0.0-0.8); MONO % 9.6 % (0.0-5.0); NEUTROPHILS % 69.2 % (36.0-66.0); PLATELET COUNT, AUTOMATED 325 10^3/uL (150-450); RED BLOOD COUNT 3.67 10^6/uL (4.00-5.40); WHITE BLOOD COUNT 8.7 10^3/uL (4.0-10.0)
[2018-07-16 06:00] VITALS: BP 149/68
[2018-07-16 06:10] LABS: ALBUMIN 2.5 GM/DL (3.2-5.2); ALT/SGPT 27 U/L (12-78); BILIRUBIN,TOTAL 0.2 MG/DL (0.2-1.0); BLOOD UREA NITROGEN 19 MG/DL (7-18); C REACTIVE PROTEIN QUANTITATIV 5.24 MG/DL (0.00-0.30); CALCIUM LEVEL 8.4 MG/DL (8.8-10.2); CARBON DIOXIDE LEVEL 26 MEQ/L (21-32); CHLORIDE LEVEL 105 MEQ/L (98-107); CREATININE FOR GFR 0.91 MG/DL (0.55-1.30); GLOMERULAR FILTRATION RATE > 60.0 (>32); GLUCOSE, FASTING 96 MG/DL (70-100); MAGNESIUM LEVEL 2.2 MG/DL (1.8-2.4); POTASSIUM SERUM 3.9 MEQ/L (3.5-5.1); SODIUM LEVEL 137 MEQ/L (136-145); TOTAL PROTEIN 6.4 GM/DL (6.4-8.2)
[2018-07-16] MEDS: risperiDONE 0.25 MG TAB PO SCH ×2 (06:37→18:20)
[2018-07-16] MEDS: COLCHICINE 0.6 MG TAB PO SCH (09:00)
[2018-07-16] MEDS ORDERED: MORPHINE 4 MG/ML 1ML VIAL/SYRINGE (J2270) IV PRN (09:30)
[2018-07-16] MEDS ORDERED: LORazepam 2 MG/ML VIAL (J2060) IV PRN (09:30)
[2018-07-16] MEDS ORDERED: diphenhydrAMINE INJ 50MG/ML VIAL (J1200) IV PRN (09:30)
[2018-07-16] MEDS ORDERED: SCOPOLAMINE 1MG TRANSDERMAL PATCH TOP PRN (09:30)
[2018-07-16] MEDS ORDERED: HYDROMORPHONE HCL 0.5 MG/ 0.5 ML SYRINGE (J1170 PER 1) IV PRN (09:45)
[2018-07-16] MEDS: ACETAMINOPHEN TAB 650MG DOSE (2X325MG) PO PRN (10:13)
--- NOTE | 2018-07-16 14:26 | IPNPDOC ---
Text Note Date of Service The patient was seen on 07/16/18. NOTE Subjective: Patient is an 87-year-old female with a PMHx of Dementia with Hallucinations, HTN, CAD without stent (Hx of [place]), Asthma / Bronchitis, Chronic allergies, RLS, Bilateral macular degeneration, GERD, who presented to the ER, brought in by her daughter because of worsening confusion. Patient was admitted to the hospital service for further evaluation and treatment. Patient was seen and examined at the bedside. Patient was sleepy on evaluation. Discussed with the daughter at the bedside; currently does appear that patient is having progressive dementia. Patient's healthcare proxy, her daughter was present at the bedside. At this point, patient was converted to comfort measures only - given her progressive dementia. I have updated the MOLST form with the daughter. 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) Asthma / Bronchitis Chronic allergies RLS Bilateral macular degeneration GERD DVT prophylaxis Plan: - Discussed with daughter about progressive dementia; daughter agrees to placement is the best option - Does not want to pursue any aggressive measures; agrees to comfort measures is the best option - MOLST form has been updated - Nonessential medications are been discontinued - MOLST order set has been instituted Disposition: - Looking into placement options VS,Fishbone, I+O VS, Fishbone, I+O Laboratory Tests 07/16/18 05:15 Red Blood Count 3.67 L, Mean Corpuscular Volume 86.4, Mean Corpuscular Hemoglobin 28.3, Mean Corpuscular Hemoglobin Concent 32.8, Red Cell Distribution Width 13.4, Neutrophils (%) (Auto) 69.2 H, Lymphocytes (%) (Auto) 17.5 L, Monocytes (%) (Auto) 9.6 H, Eosinophils (%) (Auto) 3.0, Basophils (%) (Auto) 0.2, Neutrophils # (Auto) 6.0, Lymphocytes # (Auto) 1.5, Monocytes # (Auto) 0.8, Eosinophils # (Auto) 0.3, Basophils # (Auto) 0.0, Calcium Level 8.4 L, Aspartate Amino Transf (AST/SGOT) 17, Alanine Aminotransferase (ALT/SGPT) 27, Alkaline Phosphatase 84, Total Bilirubin 0.2, Total Protein 6.4, Albumin 2.5 L Vital Signs Date Time Temp Pulse Resp B/P (MAP) Pulse Ox O2 Delivery O2 Flow Rate FiO2 07/16/18 06:00 98.1 60 19 149/68 (95) 94 Room Air I&O- Last 24 Hours up to 6 AM 07/16/18 06:00 Intake Total 1200 ml Balance 1200 ml CLEMENCIA FRANCIS MD Jul 16, 2018 14:26
[2018-07-16] MEDS: ATENOLOL 25 MG TAB PO SCH (21:15)
[2018-07-17 00:06] LABS: ANA (HEP2) Positive (.); ANTINUCLEAR ANTIBODIES DIRECT Negative (Negative)
[2018-07-17] MEDS: risperiDONE 0.25 MG TAB PO SCH ×2 (06:30→17:41)
[2018-07-17] MEDS: COLCHICINE 0.6 MG TAB PO SCH (09:50)
[2018-07-17] MEDS: ATENOLOL 25 MG TAB PO SCH (20:26)
[2018-07-18] MEDS: risperiDONE 0.25 MG TAB PO SCH ×2 (05:47→17:20)
[2018-07-18] MEDS: COLCHICINE 0.6 MG TAB PO SCH (09:49)
[2018-07-18] MEDS: ATENOLOL 25 MG TAB PO SCH (21:26)
[2018-07-19] MEDS: risperiDONE 0.25 MG TAB PO SCH ×2 (05:18→18:04)
[2018-07-19] MEDS: COLCHICINE 0.6 MG TAB PO SCH (08:36)
[2018-07-19] MEDS: ACETAMINOPHEN TAB 650MG DOSE (2X325MG) PO PRN (08:42)
[2018-07-19 20:20] VITALS: BP 162/70
[2018-07-19] MEDS: ATENOLOL 25 MG TAB PO SCH (20:20)
[2018-07-20] MEDS: risperiDONE 0.25 MG TAB PO SCH (05:27)
[2018-07-20] MEDS ORDERED: RISP0.5T21 PO (06:38)
--- NOTE | 2018-07-20 06:49 | DS.PDOC ---
Discharge Summary General Date of Admission Jul 12, 2018 at 10:45 Date of Discharge 07/20/18 Primary Care Physician: Kirill Puentes Discharge Summary PROCEDURES PERFORMED DURING STAY: [None]. DISCHARGE DIAGNOSES: 1. HTN 2. Progressive dementia 3. CAD/[place] 4. PE/LLE DVT 5. Asthma/bronchitis 6. Chronic allergies 7. RLS 8. B/L macular degeneration 9. GERD COMPLICATIONS/CHIEF COMPLAINT: Altered Mental Status. HISTORY OF PRESENT ILLNESS: Patient is an 87-year-old female with a PMHx of Dementia with Hallucinations, HTN, CAD without stent (Hx of [place]), Asthma / Bronchitis, Chronic allergies, RLS, Bilateral macular degeneration, GERD, who presented to the ER, brought in by her daughter because of worsening confusion. Patient is a poor historian and details were provided by the daughters. Noted that over the course of 3 weeks patient has been having worsening mentation. Yesterday patient had a fall and was too weak to move. They noted that she fell backward landing on her back. She denied any loss of consciousness, but they did report head trauma. As per the daughters patient had not experienced any cough, fevers, chills, nausea or vomiting. They do note that the patient is incontinent of urine and stool. They may have noted some abnormal odor of urine. Patient has noted some constipation. Patient has been experiencing dementia with hallucinations over the last 3 years. They note that they have been on Risperdal for these hallucinations. There has been improvement initially, however, there was worsening hallucinations and dose of Risperdal has been increased one week ago by her primary care provider. Family notes that the patient has had a good appetite and dont note any significant change in her weight. HOSPITAL COURSE: Patient admitted for further evaluation. Prognosis was discussed with daughter about progressive dementia; daughter agrees to placement is the best option, does not want to pursue any aggressive measures; agrees to comfort measures is the best option. MOLST form was updated. Family decided would prefer patient to return home. Plan is for discharge home with home services, follow up with PCP. DISCHARGE MEDICATIONS: Please see below. ALLERGIES: Please see below. PHYSICAL EXAMINATION ON DISCHARGE: VITAL SIGNS: Please see below. GENERAL: NAD HEENT: NC/AT, EOMI NECK: supple CARDIOVASCULAR EXAMINATION: +S1S2, RRR RESPIRATORY EXAMINATION: CTA B/L ABDOMINAL EXAMINATION: soft, NT, +BS, ND EXTREMITIES: no edema LABORATORY DATA: Please see below. PROGNOSIS: Poor prognosis ACTIVITY: [As tolerated]. DIET: As tolerated DISCHARGE PLAN: Home with services DISCHARGE INSTRUCTIONS: 1. Follow up with PCP - Dr. Puentes - in 1-3 days. DISCHARGE CONDITION: [Stable]. TIME SPENT ON DISCHARGE: Greater than 30 minutes. Vital Signs/I&Os Vital Signs Date Time Temp Pulse Resp B/P (MAP) Pulse Ox O2 Delivery O2 Flow Rate FiO2 07/19/18 20:20 76 162/70 07/16/18 06:00 98.1 19 94 Room Air I&O- Last 24 Hours up to 6 AM 07/20/18 06:00 Intake Total 690 ml Output Total 0 ml Balance 690 ml Microbiology Microbiology 07/12/18 Blood Culture - Final, Complete NO GROWTH AFTER 5 DAYS 07/12/18 Blood Culture - Final, Complete NO GROWTH AFTER 5 DAYS Discharge Medications Scheduled Atenolol (Atenolol) 50 Mg Tab, 25 MG PO QHS, (Reported) Cetirizine HCl (All Day Allergy) 10 Mg Tab, 10 MG PO DAILY, (Reported) Docusate Sod/Senna (Senokot S 8.6-50 mg) 1 Tab Tab, 1 TAB PO QID, (Reported) Melatonin (Melatonin) 10 Mg Tab, 10 MG PO QHS, (Reported) Multivitamin Areds (Preservision Areds) 1 Cap Cap, 1 CAP PO BID, (Reported) Pantoprazole Sodium Sesquihydr (Protonix) 40 Mg Tab, 40 MG PO DAILY, (Reported) Risperidone (Risperdal) 0.5 Mg Tab, 0.25 MG PO BID Allergies Coded Allergies: Morphine (Verified Allergy, Intermediate, RASH, 09/26/12) Penicillins (Verified Allergy, Intermediate, RASH, 09/26/12) Penicillins Cross Reactors (Verified Allergy, Intermediate, RASH, 09/26/12) Sulfa Drugs (Verified Allergy, Intermediate, RASH, 09/26/12) Sulfa Drugs Cross Reactors (Verified Allergy, Intermediate, RASH, 09/26/12) Aloe (Unverified Allergy, Mild, Rash, 07/06/15) Cephalosporins (Verified Allergy, Unknown, 07/05/15) Reaction: Rash Enalapril (Verified Allergy, Unknown, 09/26/12) Trandolapril (Verified Allergy, Unknown, 09/26/12) Codeine (Verified Adverse Reaction, Mild, ANXIETY, 09/26/12) Diphenhydramine (Verified Adverse Reaction, Unknown, agitation, 07/12/18) LUIS MINAYA MD Jul 20, 2018 06:48
[2018-07-20] MEDS: COLCHICINE 0.6 MG TAB PO SCH (07:56)
[2018-07-20] MEDS: ACETAMINOPHEN TAB 650MG DOSE (2X325MG) PO PRN (08:29)
== END 2018-07-20 09:09 | disposition home health service (06) | DRG 884 ==
LOC: EDBD 08:02 → M ED 08:02 → M ED INP 10:45 → M MSPAV 16:02
PROVIDERS: ADMIT Internal Medicine; ATTEND Internal Medicine
DX: F03.90 Unspecified dementia, unspecified severity, without behavioral disturbance, psychotic disturbance, mood disturbance, and anxiety (principal); I10 Essential (primary) hypertension; I25.2 Old myocardial infarction; J45.909 Unspecified asthma, uncomplicated; H35.30 Unspecified macular degeneration; G25.81 Restless legs syndrome; K21.9 Gastro-esophageal reflux disease without esophagitis; R32 Unspecified urinary incontinence; R15.9 Full incontinence of feces; Z79.01 Long term (current) use of anticoagulants; Z79.899 Other long term (current) drug therapy; Z88.0 Allergy status to penicillin; Z88.1 Allergy status to other antibiotic agents; Z88.2 Allergy status to sulfonamides; Z88.5 Allergy status to narcotic agent; Z91.048 Other nonmedicinal substance allergy status; Z98.41 Cataract extraction status, right eye; Z98.42 Cataract extraction status, left eye; Z85.41 Personal history of malignant neoplasm of cervix uteri; Z90.710 Acquired absence of both cervix and uterus; Z90.722 Acquired absence of ovaries, bilateral; Z90.79 Acquired absence of other genital organ(s); Z86.711 Personal history of pulmonary embolism; Z86.718 Personal history of other venous thrombosis and embolism; Z66 Do not resuscitate; Z51.5 Encounter for palliative care